=== PATIENT | male | born 1960 | race Caucasian/White ===

== ENCOUNTER 2020-02-23 05:52 | Emergency (ER) | payer OTHER ==
[~2020-02-23] VITALS: Ht 177.8 cm; Wt 95.3 kg
[2020-02-23 06:27] LABS: HEMATOCRIT 43.8 % (42.0-52.0); HEMOGLOBIN 14.7 gm/dL (14.0-18.0); MCH 30.9 pg (26.0-34.0); MCHC 33.7 g/dL (28.0-37.0); MCV 91.7 fL (80.0-100.0); RBC 4.78 mil/uL (4.50-6.00); RDW 13.8 % (10.5-14.5); WBC 8.2 thou/uL (4.0-11.0)
[2020-02-23 06:34] LABS: ANION GAP 5 mmol/L (7-16); BUN 16 mg/dL (7-18); CALCIUM 8.5 mg/dL (8.5-10.1); CHLORIDE 104 mmol/L (98-107); CO2 30 mmol/L (21-32); CREATININE 0.9 mg/dL (0.7-1.3); GLUCOSE 156 mg/dL (74-106); POTASSIUM 3.6 mmol/L (3.5-5.1); SODIUM 139 mmol/L (136-145)
[2020-02-23 06:36] LABS: URINE BLOOD 3+ (Negative); URINE CLARITY CLOUDY; URINE COLOR BROWN; URINE GLUCOSE-RANDOM* NEGATIVE (Negative); URINE KETONES TRACE (Negative); URINE LEUKOCYTES-REFLEX TRACE (Negative); URINE PROTEIN (DIPSTICK) 2+ (Negative); URINE SPECIFIC GRAVITY >= 1.030 (1.005-1.035)
[2020-02-23 06:39] LABS: ICTOTEST (BILI CONFIRMATORY) Negative (Negative); URINE BILIRUBIN NEGATIVE (Negative); URINE NITRITE-REFLEX POSITIVE (Negative)
[2020-02-23 06:43] LABS: TROPONIN-I <0.06 ng/mL (<0.06)
[2020-02-23 07:01] LABS: BACTERIA-REFLEX 1-9 Few /HPF (None Seen); CASTS None Seen /LPF (None Seen); SQUAMOUS 0-3 Few /LPF (0-3); URINE RBC >20 Many /HPF (0-2); URINE WBC-REFLEX 0-5 Rare /HPF (0-5)
[2020-02-23 07:02] LABS: CRYSTALS None Seen /LPF (None Seen); MUCUS 0-3 Light strn/LPF (None Seen)
[2020-02-23] MEDS ORDERED: IBUPROFEN 400400 M2 PO ×2 (07:53→08:13)
[2020-02-23] MEDS ORDERED: NORCO 5-325 TA1 EAC1 PO ×2 (07:53→08:13)
[2020-02-23] MEDS ORDERED: FLOMAX0.4 MG PO ×2 (07:53→08:13)
[2020-02-23] MEDS ORDERED: ZOFRAN ODT4 MG PO ×2 (07:53→08:13)
[2020-02-23] MEDS ORDERED: KEFLEX500 M1 PO ×2 (07:53→08:13)
[2020-02-23 08:30] VITALS: BP 143/72
--- NOTE | 2020-02-23 08:45 | EKG ---
[facility] [place] [address] ELECTROCARDIOGRAM REPORT Name: KATHRYN MALLORY Room #: DEP M.R.#: [id number] Admission: 02/23/20 Attend Phys: Discharge: 02/23/20 Date of : 56 Report #: [id number] THIS REPORT FOR: cc: Reji Pedro MD, Timothy MD Lundgren,Olu Boyle MD [facility] ~ THIS REPORT FOR: //name// [facility] ED Test Date: 2020-02-23 Test Time: 06:18:54 Pat Name: KATHRYN MALLORY Department: Room: Gender: Change Control Analyst: NILSA : 1960 Requested By: Loan Trinidad Order Number: [id number] MD: Olu Patel Measurements Intervals [place] Rate: 69 P: 67 AL: 165 QRS: 57 QRSD: 68 T: 72 QT: 393 QTc: 421 Interpretive Statements Sinus rhythm Atrial premature complexes Early R wave progression Minimal ST elevation, anterior leads Baseline wander in lead(s) V5 No previous ECG available for comparison Electronically Signed On 02-23-2020 8:43:23 CDT by Olu Patel [email or web address] <ELECTRONICALLY SIGNED> By: Olu Patel MD, FACC 02/23/20 0843 [id number] Olu Patel MD, [facility] /EPI
== END 2020-02-23 08:30 | disposition home or self-care (01) ==
LOC: ER 05:52 → EDBD 05:52 → ER 08:30
PROVIDERS: Emergency Medicine Emergency Medical Services
DX: N13.2 Hydronephrosis with renal and ureteral calculous obstruction (principal)